=== PATIENT | female | born 1945 | race Caucasian/White ===

== ENCOUNTER 2017-02-08 14:33 | Inpatient (IN) | payer OTHER, MEDICARE ==
[~2017-02-08] VITALS: Ht 170.2 cm; Wt 123.8 kg
[2017-02-08 14:42] VITALS: BP 149/69
[2017-02-08] MEDS ORDERED: LASIX 20 MG TAB20 MG PO (14:59)
[2017-02-08] MEDS ORDERED: LISINOPRIL10 MG PO (14:59)
[2017-02-08] MEDS ORDERED: POTASSIUM20 PO (15:00)
[2017-02-08 15:14] LABS: ABSOLUTE BASOPHILS 0.1 thou/uL (0.0-0.2); ABSOLUTE LYMPHOCYTES 1.2 thou/uL (0.8-5.3); ABSOLUTE MONOCYTES 0.8 thou/uL (0.0-1.2); ABSOLUTE NEUTROPHILS 4.8 thou/uL (1.6-8.1); BASOPHILS 0.8 %; EOSINOPHILS 0.7 %; HEMATOCRIT 42.8 % (37.0-47.0); HEMOGLOBIN 13.8 gm/dL (12.0-15.0); LYMPHOCYTES 17.3 %; MCHC 32.2 g/dL (28.0-37.0); MCV 87.1 fL (80.0-100.0); MONOCYTES 11.6 %; MPV 9.7 fl. (7.2-11.1); NUCLEATED RBCS 0 /100WBC; PLATELET COUNT* 172 thou/uL (150-400); POLYS 69.6 %; RBC 4.91 mil/uL (4.20-5.00); WBC 6.8 thou/uL (4.0-11.0)
[2017-02-08 15:24] LABS: CALCIUM 8.1 mg/dL (8.5-10.1); CREATININE 1.1 mg/dL (0.6-1.3)
[2017-02-08 15:28] LABS: ALBUMIN 3.2 g/dL (3.4-5.0); TOTAL BILIRUBIN 0.4 mg/dL (<0.1-1.0); TOTAL PROTEIN 7.1 g/dL (6.4-8.2)
[2017-02-08 18:22] LABS: URINE BLOOD NEGATIVE (Negative); URINE CLARITY CLEAR; URINE COLOR YELLOW; URINE GLUCOSE-RANDOM NEGATIVE (Negative); URINE KETONES NEGATIVE (Negative); URINE NITRITE-REFLEX NEGATIVE (Negative); URINE PROTEIN TRACE (Negative); URINE SPECIFIC GRAVITY 1.025 (1.005-1.030)
[2017-02-08 18:23] LABS: ICTOTEST (BILI CONFIRMATORY) Negative (Negative); URINE BILIRUBIN 1+ (Negative); URINE LEUKOCYTES-REFLEX 2+ (Negative)
[2017-02-08 18:24] LABS: BACTERIA-REFLEX None Seen /HPF (None Seen); CASTS None Seen /LPF (None Seen); SQUAMOUS >10 Many /LPF (0-3); URINE RBC None Seen /HPF (0-2); URINE WBC-REFLEX 6-15 Few /HPF (0-5)
[2017-02-08 18:25] LABS: CRYSTALS None Seen /LPF (None Seen)
[2017-02-08 19:09] VITALS: BP 128/50
[2017-02-08 20:20] VITALS: BP 115/45
[2017-02-08 23:29] VITALS: BP 137/54
[2017-02-09 04:14] VITALS: BP 145/86
[2017-02-09 04:40] LABS: HEMATOCRIT 42.5 % (37.0-47.0); HEMOGLOBIN 13.6 gm/dL (12.0-15.0); MCV 87.6 fL (80.0-100.0); RBC 4.86 mil/uL (4.20-5.00); RDW-CV 13.8 % (10.5-14.5); WBC 5.1 thou/uL (4.0-11.0)
[2017-02-09 05:05] LABS: CALCIUM 8.5 mg/dL (8.5-10.1); CREATININE 0.9 mg/dL (0.6-1.3); MAGNESIUM 2.1 mg/dL (1.8-2.4); POTASSIUM 4.9 mmol/L (3.5-5.1)
[2017-02-09 08:00] VITALS: BP 112/47
[2017-02-09 16:00] VITALS: BP 132/67
[2017-02-09 20:00] VITALS: BP 126/58
[2017-02-10 08:38] VITALS: BP 148/77
[2017-02-10 19:30] VITALS: BP 130/74
[2017-02-11 08:00] VITALS: BP 124/45
[2017-02-11 15:48] VITALS: BP 113/60
[2017-02-11 20:15] VITALS: BP 133/70
[2017-02-12 03:46] LABS: HEMATOCRIT 40.3 % (37.0-47.0); HEMOGLOBIN 12.8 gm/dL (12.0-15.0); MCH 27.6 pg (26.0-34.0); MCHC 31.6 g/dL (28.0-37.0); MCV 87.3 fL (80.0-100.0); MPV 9.6 fl. (7.2-11.1); RBC 4.62 mil/uL (4.20-5.00); RDW-CV 13.6 % (10.5-14.5); WBC 6.2 thou/uL (4.0-11.0)
[2017-02-12 04:07] LABS: ALBUMIN 2.6 g/dL (3.4-5.0); CREATININE 0.9 mg/dL (0.6-1.3); MAGNESIUM 1.8 mg/dL (1.8-2.4); POTASSIUM 4.6 mmol/L (3.5-5.1); TOTAL BILIRUBIN 0.1 mg/dL (<0.1-1.0); TOTAL PROTEIN 5.7 g/dL (6.4-8.2)
[2017-02-12] MEDS ORDERED: CEFDINIR300 MG PO (08:06)
[2017-02-12 08:25] VITALS: BP 131/69
[2017-02-12 09:18] VITALS: BP 131/69
== END 2017-02-12 14:35 | disposition home or self-care (01) | DRG 154 ==
LOC: M.ERS 14:33 → M.TBA-ER 17:37 → M.3W 17:37
PROVIDERS: Emergency Medicine Emergency Medical Services; Family Medicine; ADMIT Internal Medicine
DX: K11.3 Abscess of salivary gland (principal); J96.00 Acute respiratory failure, unspecified whether with hypoxia or hypercapnia; Z68.41 Body mass index [BMI] 40.0-44.9, adult; N39.0 Urinary tract infection, site not specified; E66.01 Morbid (severe) obesity due to excess calories; I10 Essential (primary) hypertension; R59.9 Enlarged lymph nodes, unspecified; K00.7 Teething syndrome; Z87.891 Personal history of nicotine dependence; Z90.49 Acquired absence of other specified parts of digestive tract